=== PATIENT | male | born 1940 | race Caucasian/White ===

== ENCOUNTER 2018-01-14 13:27 | Outpatient (CLI) | payer MEDICARE, OTHER ==
[~2018-01-14] VITALS: Ht 175.3 cm; Wt 86.6 kg
[2018-01-14] MEDS ORDERED: PHEN100C4 PO (14:10)
[2018-01-14] MEDS ORDERED: PHEN97.2 PO (14:10)
[2018-01-15] MEDS ORDERED: ASPI-586 PO (09:47)
[2018-01-15] MEDS ORDERED: MULT-974 PO (09:47)
[2018-01-15] MEDS ORDERED: HYDR-3870 PO (12:14)
[2018-01-15] MEDS ORDERED: TAMS0.4C98 PO (12:14)
[2018-01-15] MEDS ORDERED: CIPR-225 PO (12:14)
== END 2018-01-14 14:15 | disposition home or self-care (01) ==
LOC: PREOP 13:27
PROVIDERS: ATTEND Urology
DX: Z01.818 Encounter for other preprocedural examination (principal)

== ENCOUNTER → 2018-01-14 | Outpatient (CLI) | payer MEDICARE, OTHER ==
[~2018-01-14] MED LIST: ASPI-586 PO; CIPR-225 PO; DEXAMETHASONE 10 MG/ML (DECADRON) 1 ML VIAL ONE; FUROSEMIDE 40 MG/4 ML INJ (LASIX) ONE; HYDR-3870 PO; KETOROLAC 30 MG/ML VIAL ONE; LIDOCAINE PF 2% 5 ML (XYLOCAINE) VIAL ONE; MIDAZOLAM 2 MG/2 ML (VERSED) VIAL ONE; MULT-974 PO; ONDANSETRON 4 MG/2 ML (SDV) Z0FRAN ONE; PHEN100C4 PO; PHEN97.2 PO; SEVOFLURANE (ULTANE) 15 ML INHAL SOLN ONE; TAMS0.4C98 PO; fentaNYL INJECTION 100 MCG/2 ML AMP ONE; proPOfol 200 MG/20 ML (DIPRIVAN) VIAL IV ONE
--- NOTE | 2018-01-14 12:58 | Diagnostic Imaging Report ---
INDICATION: Right-sided ureteral stone. TECHNIQUE: 2 supine view of the abdomen 12:19 PM. CORRELATION STUDY: None FINDINGS: Moderate amount of overlying bowel gas and stool limits assessment. There are multiple calcifications asymmetrically disproportionate in the right hemipelvis compared to the left. Large number of these appear to be vascular or phleboliths. Some of these are in expected location of the distal right ureter. Small punctate calcification over the right L3 transverse process for which ureteral stone is not excluded. Metallic density over the left aspect of the L5 vertebral body. There is asymmetric density over the right mid sacrum as well as left iliac bone, nonspecific. Suggest additional sclerotic foci over the right superior pubic symphysis. Asymmetric sclerosis at the left SI joint. Leftward curvature of the lumbar spine with compressed L2 vertebral body and to a lesser degree the superior L3 vertebral body. IMPRESSION: 1. Multiple calcification of the right hemipelvis as well as additional calcification adjacent to the right L3 vertebral body. Possibility of these being ureteral stones would be difficult to exclude. Correlation with renal colic CT if clinically warranted would be recommended. 2. Multifocal areas of sclerosis are present. These may very well be benign findings. However, given the patient's age, the possibility of metastatic disease such as prostate cancer would be difficult to exclude. Dictated by: Dictated on workstation # [id number]
== END ==
LOC: RAD 11:48
PROVIDERS: ATTEND Urology
DX: N20.1 Calculus of ureter (principal); M25.80 Other specified joint disorders, unspecified joint
CPT/HCPCS: 74018

== ENCOUNTER 2018-01-15 07:43 | Day surgery (SDC) | payer MEDICARE, OTHER ==
[~2018-01-15] VITALS: Ht 175.3 cm; Wt 86.6 kg
[~2018-01-15 07:43] MED LIST changes: -ASPI-586 PO; -CIPR-225 PO; -DEXAMETHASONE 10 MG/ML (DECADRON) 1 ML VIAL ONE; -FUROSEMIDE 40 MG/4 ML INJ (LASIX) ONE; -HYDR-3870 PO; -KETOROLAC 30 MG/ML VIAL ONE; -LIDOCAINE PF 2% 5 ML (XYLOCAINE) VIAL ONE; -MIDAZOLAM 2 MG/2 ML (VERSED) VIAL ONE; -MULT-974 PO; -ONDANSETRON 4 MG/2 ML (SDV) Z0FRAN ONE; -SEVOFLURANE (ULTANE) 15 ML INHAL SOLN ONE; -TAMS0.4C98 PO; -fentaNYL INJECTION 100 MCG/2 ML AMP ONE; -proPOfol 200 MG/20 ML (DIPRIVAN) VIAL IV ONE
[2018-01-15 07:50] VITALS: BP 118/89
--- OUTSIDE RECORDS SUMMARY | 2018-01-15 07:58 | XMS REPORT | Continuity of Care Document ---
Author Author [facility] Address Unknown Phone Unavailable Allergies Active Description Code Type Severity Reaction Onset Reported/Identified Relationship to Patient Clinical Status Yes NO NAME AVAILABLE [id number] DRUG N/ A N/A Yes NO KNOWN DRUG ALLERGIES UNKNOWN NO KNOWN DRUG ALLERG Medications Medication Packaging Start Date Stop Date Route Dosage Sig LACTATED RINGERS IV SOLN 2015 Intravenous 1000 CONTINUOUS CEFOXITIN SODIUM-DEXTROSE 1-4 GM-% IV SOLR 08/03/2015 Intravenous 1 ONCE LIDOCAINE HCL 1 % IJ SOLN 2015 PRN PROPOFOL 10 MG/ML IV EMUL 2015 Intravenous PRN ONDANSETRON HCL 4 MG/2ML IJ SOLN 08/03/2015 Intravenous PRN SODIUM CHLORIDE 0.9 % IRRIGATION SOLN (SUPPLY) 08/03/2015 PRN SODIUM CHLORIDE 0.9 % IRRIGATION SOLN (SUPPLY) 08/03/2015 PRN STERILE WATER FOR IRRIGATION SOLN (SUPPLY) 08/03/2015 PRN ONDANSETRON HCL 4 MG/2ML IJ SOLN 08/03/2015 Intravenous 4 ONCE PRN ONDANSETRON 4 MG PO TBDP 2015 Oral 4 ONCE PRN ONDANSETRON HCL 4 MG/2ML IJ SOLN 08/03/2015 Intravenous 4 EVERY 6 HOURS PRN PHENAZOPYRIDINE HCL 100 MG PO TABS 08/03/2015 Oral 200 EVERY 8 HOURS PRN LACTATED RINGERS IV SOLN 2015 Intravenous CONTINUOUS PHENYTOIN SODIUM EXTENDED 300 MG PO CAPS 08/03/2015 Oral 300 NIGHTLY TAMSULOSIN HCL 0.4 MG PO CAPS 12/2015 Oral 0.4 NIGHTLY FINASTERIDE 5 MG PO TABS 2015 Oral 5 DAILY LACTATED RINGERS IV SOLN 2015 Intravenous 1000 CONTINUOUS CEFOXITIN SODIUM-DEXTROSE 1-4 GM-% IV SOLR 09/02/2015 Intravenous 1 ONCE PROPOFOL 10 MG/ML IV EMUL 2015 Intravenous CONTINUOUS PRN PHENYLEPHRINE HCL-NACL PF 1-0.9 MG/10ML-% IV SOSY 09/02/2015 Intravenous PRN EPHEDRINE SULFATE 5 MG/ML PREFILLED SYRINGE 09/02/2015 Intravenous PRN SODIUM CHLORIDE 0.9 % IRRIGATION SOLN (SUPPLY) 09/02/2015 PRN IOHEXOL 300 MG/ML IJ SOLN 2015 PRN SURGILUBE EX GEL 09/02/2015 PRN STERILE WATER FOR IRRIGATION SOLN (SUPPLY) 09/02/2015 PRN ONDANSETRON HCL 4 MG/2ML IJ SOLN 09/02/2015 PRN ONDANSETRON HCL 4 MG/2ML IJ SOLN 09/02/2015 Intravenous 4 ONCE PRN ONDANSETRON 4 MG PO TBDP 2015 Oral 4 ONCE PRN ONDANSETRON HCL 4 MG/2ML IJ SOLN 09/02/2015 Intravenous 4 EVERY 6 HOURS PRN PHENAZOPYRIDINE HCL 100 MG PO TABS 09/02/2015 Oral 200 EVERY 8 HOURS PRN DEXTROSE-NACL 5-0.9 % IV SOLN 11/2015 Intravenous CONTINUOUS CEFOXITIN SODIUM-DEXTROSE 1-4 GM-% IV SOLR 09/02/2015 09/03/2015 Intravenous 1 EVERY 8 HOURS FINASTERIDE 5 MG PO TABS 2015 Oral 5 DAILY CIPROFLOXACIN HCL 500 MG PO TABS 09/02/2015 Oral 500 2 TIMES DAILY KETOROLAC VIAL INJ 60 MG/2CC (TORADOL VIAL) MG 03/24/2017 03/24/2017 ONCE&0902 ACETAMINOPHEN TAB 500 MG (TYLENOL) MG 01/06/2018 01/06/2018 ONCE&1417 NORMAL SALINE 500CC IV BAG INJ 0.9 % (NS 500CC IV BAG) ml 01/06/2018 01/06/2018 ONCE&1417 NORMAL SALINE 500CC IV BAG INJ 0.9 % (NS 500CC IV BAG) ml 01/06/2018 01/06/2018 ONCE&1600 NORMAL SALINE 1000CC IV BAG INJ 0.9 % (NS 1000CC IV BAG) ml 01/06/2018 01/21/2018 CONTINUOUSEVERY 0 Hour CEFTRIAXONE PREMIX IV BAG IV 1 GM/50CC (ROCEPHIN PREMIX IV BAG) GM 01/06/2018 01/06/2018 ONCE&1700 ACETAMINOPHEN ORAL TABLET 325mg(Tylenol) MG 01/06/2018 02/05/2018 PRN EVERY 6 Hour NORMAL SALINE 1000CC IV BAG INJ 0.9 % (NS 1000CC IV BAG) ml 01/06/2018 01/21/2018 CONTINUOUSEVERY 0 Hour IBUPROFEN TAB 600 MG (MOTRIN) MG 01/13/2018 PRN Q6H PHENOBARBITAL TAB 100 MG (sub 97.2mg) MG 01/06/2018 01/12/2018 QHS&2100 PHENYTOIN CAP 100 MG (DILANTIN) MG 01/06/2018 01/13/2018 Daily&0600,1400,2200 ASPIRIN ENTERIC COATED TAB 81 MG (BABY ASPIRIN EC) MG 01/07/2018 01/13/2018 Daily&0900 PHENOBARBITAL TAB 100 MG (sub 97.2mg) MG 01/07/2018 01/13/2018 Daily&0900 CEFTRIAXONE PREMIX IV BAG IV 1 GM/50CC (ROCEPHIN PREMIX IV BAG) GM 01/07/2018 01/13/2018 Daily&0900 KETOROLAC VIAL INJ 30 MG/CC (TORADOL VIAL) MG 01/07/2018 01/07/2018 ONCE&1334 NORMAL SALINE 1000CC IV BAG INJ 0.9 % (NS 1000CC IV BAG) ml 01/07/2018 01/22/2018 CONTINUOUSEVERY 0 Hour FENTANYL INJ 100 MCG/2CC VIAL MCG 01/07/2018 01/10/2018 PRN Q2H Meropenem-0.9% sodium chloride IV piggyback 1 Gm GM 01/07/2018 01/17/2018 Q12H&0600,1800 KETOROLAC VIAL INJ 30 MG/CC (TORADOL VIAL) MG 01/07/2018 01/10/2018 PRN Q6H Meropenem-0.9% sodium chloride IV piggyback 1 Gm GM 01/07/2018 01/17/2018 Q12H&0800,2000 PHENYTOIN CAP 100 MG (DILANTIN) MG 01/07/2018 01/13/2018 QPM&2100 ASPIRIN ENTERIC COATED TAB 81 MG (BABY ASPIRIN EC) MG 01/08/2018 01/14/2018 Daily&0900 LACTATED RINGERS 1000CC IV BAG INJ ml 01/08/2018 01/08/2018 ONCE&0908 NORMAL SALINE 1000CC IV BAG INJ 0.9 % (NS 1000CC IV BAG) ml 01/10/2018 01/25/2018 CONTINUOUSEVERY 0 Hour Docusate sodium 100mg oral capsule (COLACE) MG 01/10/2018 02/09/2018 BID&0800,2000 POLYETHYLENE GLYCOL POWDER UD PWD (MIRALAX 17GM UNIT DOSE PAKS) gm 01/11/2018 01/17/2018 Daily&0900 ENOXAPARIN SYRINGE INJ 40 MG (LOVENOX SYRINGE) MG 01/11/2018 01/20/2018 Daily&2000 Problems Date Dx Coded Attending Type Code Diagnosis Diagnosed By 07/11/2015 TYSHAWN BACON-LESLIE V N39.0 Urinary tract infection, site not specified BACON, VILLAGRAN-CHI 08/03/2015 BACON, VILLAGRAN-CHI P N21.0 Calculus in bladder BACON, VILLAGRAN-CHI 08/03/2015 BACON, VILLAGRAN-CHI P N21.0 Calculus in bladder BACON, VILLAGRAN-CHI 08/03/2015 BACON, VILLAGRAN-CHI P N21.0 Calculus in bladder BACON, VILLAGRAN-CHI 08/03/2015 BACON, VILLAGRAN-CHI P N21.0 Calculus in bladder BACON, VILLAGRAN-CHI 08/04/2015 BACON, VILLAGRAN-CHI P N21.0 Calculus in bladder BACON, VILLAGRAN-CHI 08/04/2015 BACON, VILLAGRAN-CHI P N21.0 Calculus in bladder BACON, VILLAGRAN-CHI 08/04/2015 BACON, VILLAGRAN-CHI P N21.0 Calculus in bladder BACON, VILLAGRAN-CHI 2015 BACON, VILLAGRAN-CHI V [id number] Urinary Retention [facility] 08/28/2015 CHETNA COPPOLA V 887338 Hematuria ANATCHETNA JENKINS 08/28/2015 CHETNA COPPOLA V 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 CHETNA COPPOLA 08/28/2015 CHETNA COPPOLA V R33.9 Retention of urine, unspecified CHETNA COPPOLA 03/24/2017 Alexander Koch 729.5 PAIN IN LIMB 03/24/2017 Alexander Kohc 841.9 SPRAIN OF UNSPECIFIED SITE OF ELBOW AND FOREARM 03/24/2017 Alexander Koch M79.632 PAIN IN LEFT FOREARM 03/24/2017 Alexander Koch S56.912A STRAIN OF UNSP MUSC/FASC/TEND AT FORARM LV, LEFT ARM, INIT 09/19/2017 Nida Powell W E888.8 OTHER FALL 09/19/2017 Andre, Nida W W00 FALL DUE TO ICE AND SNOW 09/19/2017 Andre, Nida W E888.8 OTHER FALL 09/19/2017 Andre, Nida W W00 FALL DUE TO ICE AND SNOW 09/19/2017 Andre, Nida W E888.8 OTHER FALL 09/19/2017 Andre, Nida W W00 FALL DUE TO ICE AND SNOW 01/06/2018 W 458.1 CHRONIC HYPOTENSION 01/06/2018 W 599.0 URINARY TRACT INFECTION, SITE NOT SPECIFIED 01/06/2018 W I95.89 OTHER HYPOTENSION 01/06/2018 W N39.0 URINARY TRACT INFECTION, SITE NOT SPECIFIED 01/13/2018 W 458.1 CHRONIC HYPOTENSION 01/13/2018 W 599.0 URINARY TRACT INFECTION, SITE NOT SPECIFIED 01/13/2018 W I95.89 OTHER HYPOTENSION 01/13/2018 W N39.0 URINARY TRACT INFECTION, SITE NOT SPECIFIED Procedures There is no data. Results Test Result Range URINE CULTURE - 07/11/15 13:18 CBC WITH AUTO DIFFERENTIAL - 08/03/15 13:30 BASOPHILS RELATIVE PERCENT 0.5 % 0.0-2.5 EOSINOPHILS RELATIVE PERCENT 6.2 % <=5.0 HEMATOCRIT 44.0 % 38.8-50.0 HEMOGLOBIN 14.5 g/dL 13.5-17.5 LYMPHOCYTES RELATIVE PERCENT 35.9 % 22.0-49.0 MEAN CORPUSCULAR HEMOGLOBIN 30.8 pg 26.0-34.0 MEAN CORPUSCULAR HEMOGLOBIN CONC 33.0 g/dL 31.0-37.0 MEAN CORPUSCULAR VOLUME 93.4 fL 81.2-95.1 MONOCYTES RELATIVE PERCENT 7.7 % 2.0-9.0 NEUTROPHILS RELATIVE PERCENT 49.7 % 40.0-75.0 PLATELET COUNT 241 10E9/L 150-450 RED BLOOD CELL COUNT 4.71 10E12/L 4.32-5.72 RED CELL DISTRIBUTION WIDTH 13.4 % 11.8-15.6 [id number] 5.8 10E9/L 3.5-10.5 0640316 2.10 10E9/L 0.90-2.90 3689046 0.40 10E9/L 0.30-0.90 1329838 0.40 10E9/L 0.05-0.50 [id number] 2.90 10E9/L 1.70-7.00 [id number] 0.00 10E9/L 0.00-0.30 COMPREHENSIVE METABOLIC PANEL - 08/03/15 13:30 ALBUMIN 4.2 g/dL 3.4-4.8 ALKALINE PHOSPHATASE 151 U/L 29-122 ALT 16 U/L 10-46 AST 25 U/L 16-37 BILIRUBIN,TOTAL 0.3 mg/dL 0.2-1.3 BUN BLOOD 20 mg/dL 6-20 CALCIUM 9.1 mg/dL 8.7-10.5 CHLORIDE 104 mmol/L 99-111 CO2 32 mmol/L 20-36 CREATININE 0.68 mg/dL 0.60-1.20 EGFR > mL/min >59 GLUCOSE 96 mg/dL 74-106 POTASSIUM 4.6 mmol/L 3.6-4.9 PROTEIN TOTAL 7.7 g/dL 6.4-8.3 SODIUM 139 mmol/L 136-145 BASIC METABOLIC PANEL - 08/28/15 04:00 BUN BLOOD 17 mg/dL 6-20 CALCIUM 8.5 mg/dL 8.7-10.5 CHLORIDE 105 mmol/L 99-111 CO2 31 mmol/L 20-36 CREATININE 0.70 mg/dL 0.60-1.20 EGFR > mL/min >59 GLUCOSE 100 mg/dL 74-106 POTASSIUM 4.1 mmol/L 3.6-4.9 SODIUM 141 mmol/L 136-145 URINE CULTURE - 08/28/15 04:10 Ampicillin 8 ug/mL Ceftriaxone 32 ug/mL Levofloxacin > ug/mL Penicillin 8 ug/mL Tetracycline > ug/mL Vancomycin 2 ug/mL Amp/Sulbactam(c). <=ug/mL Ciprofloxacin > ug/mL Gentamicin <=ug/mL Synercid <=ug/mL Moxifloxacin 4 ug/mL Amoxicillin+Clavulanate <=ug/mL Linezolid <=ug/mL Oxacillin > ug/mL Rifampin <=ug/mL Daptomycin <=ug/mL Nitrofurantoin <=ug/mL URINE CULTURE - 09/16/15 08:26 [id number] <10,000 CFU/mL URINE CULTURE - 01/26/16 10:57 Ceftriaxone <=ug/mL Levofloxacin > ug/mL Tetracycline <=ug/mL Vancomycin 0.5 ug/mL Amp/Sulbactam(c). <=ug/mL Ciprofloxacin > ug/mL Gentamicin <=ug/mL Trimethoprim+Sulfamethoxazole > ug/mL Synercid <=ug/mL Moxifloxacin > ug/mL Amoxicillin+Clavulanate <=ug/mL Linezolid <=ug/mL Oxacillin <=ug/mL Rifampin <=ug/mL Daptomycin <=ug/mL Nitrofurantoin <=ug/mL CBC WITH AUTO DIFFERENTIAL - 03/07/16 10:57 BASOPHILS RELATIVE PERCENT 0.5 % 0.0-2.5 EOSINOPHILS RELATIVE PERCENT 5.6 % <=5.0 HEMATOCRIT 41.6 % 38.8-50.0 HEMOGLOBIN 13.7 g/dL 13.5-17.5 LYMPHOCYTES RELATIVE PERCENT 35.3 % 22.0-49.0 MEAN CORPUSCULAR HEMOGLOBIN 30.6 pg 26.0-34.0 MEAN CORPUSCULAR HEMOGLOBIN CONC 33.0 g/dL 31.0-37.0 MEAN CORPUSCULAR VOLUME 92.9 fL 81.2-95.1 MONOCYTES RELATIVE PERCENT 10.6 % 2.0-9.0 NEUTROPHILS RELATIVE PERCENT 48.0 % 40.0-75.0 PLATELET COUNT 228 10E9/L 150-450 RED BLOOD CELL COUNT 4.48 10E12/L 4.32-5.72 RED CELL DISTRIBUTION WIDTH 13.7 % 11.8-15.6 [id number] 5.2 10E9/L 3.5-10.5 0064611 1.80 10E9/L 0.90-2.90 2772175 0.50 10E9/L 0.30-0.90 8075718 0.30 10E9/L 0.05-0.50 8309472 2.50 10E9/L 1.70-7.00 3340570 0.00 10E9/L 0.00-0.30 PSA - 03/07/16 10:57 PSA 0.50 ng/mL 0.00-4.00 URINE CULTURE - 03/08/16 08:20 [id number] No Growth SEDIMENTATION RATE, MANUAL - 06/19/16 13:42 [id number] 20 mm/Hr <=15 BASIC METABOLIC PANEL - 06/19/16 13:42 BUN BLOOD 11 mg/dL 6-20 CALCIUM 9.0 mg/dL 8.7-10.5 CHLORIDE 106 mmol/L 99-111 CO2 32 mmol/L 20-36 CREATININE 0.77 mg/dL 0.60-1.20 EGFR > mL/min >59 GLUCOSE 97 mg/dL 74-106 POTASSIUM 4.4 mmol/L 3.6-4.9 SODIUM 142 mmol/L 136-145 Phenobarbital - 01/02/17 08:38 Phenobarb 26.3 ug/mL 10.0-25.0 Uric Acid - 03/24/17 09:01 Uric Acid 5.2 mg/dL 2.6-7.2 Urine Culture - 09/09/17 17:05 PRELIM CULTURE RESULTS >100,000 Gram Negative - PERLA / ID to Follow MEDIA PLATED Setup at 17:28 on 09/09/2017 CULTURE SOURCE Urine Sensi - 09/09/17 17:05 FINAL CULTURE RESULTS Escherichia coli (Isolate 1) Ampicillin/Sulbactam <=8/4 Ampicillin <=8 Amoxicillin/K Clavulanate >16/8 Ceftriaxone <=8 Ciprofloxacin <=1 Nitrofurantoin <=32 Gentamicin <=4 Levofloxacin <=2 Trimethoprim/ Sulfamethoxazole <=2/38 Tetracycline <=4 Amikacin <=16 Aztreonam <=8 Ceftazidime <=1 Ceftazidime/K Clavulanate <=0.25 Cephalothin 16 Cefotaxime <=2 Cefotaxime/K Clavulanate <=0.5 Cefoxitin <=8 Cefazolin <=8 Cefepime <=8 Cefuroxime 8 Ertapenem <=1 Imipenem <=4 Meropenem <=4 Piperacillin/Tazobactam <=16 Piperacillin <=16 Tigecycline <=2 Tobramycin <=4 Urine Culture - 09/19/17 18:30 PRELIM CULTURE RESULTS >100,000 Gram Negative Lactose Black Belt PERLA / ID to Follow MEDIA PLATED Setup at 19:00 on 09/19/2017 CULTURE SOURCE VOID Sensi - 09/19/17 18:30 FINAL CULTURE RESULTS Escherichia coli (Isolate 1) Ampicillin/Sulbactam <=8/4 Ampicillin <=8 Amoxicillin/K Clavulanate <=8/4 Ceftriaxone <=8 Ciprofloxacin <=1 Nitrofurantoin <=32 Gentamicin <=4 Levofloxacin <=2 Trimethoprim/ Sulfamethoxazole <=2/38 Tetracycline <=4 Amikacin <=16 Aztreonam <=8 Ceftazidime <=1 Ceftazidime/K Clavulanate <=0.25 Cephalothin <=8 Cefotaxime <=2 Cefotaxime/K Clavulanate <=0.5 Cefoxitin <=8 Cefazolin <=8 Cefepime <=8 Cefuroxime <=4 Ertapenem <=1 Imipenem <=4 Meropenem <=4 Piperacillin/Tazobactam <=16 Piperacillin <=16 Tigecycline <=2 Tobramycin <=4 Phenobarbital - 12/19/17 09:22 Phenobarb 25.3 ug/mL 10.0-25.0 Dilantin - 12/19/17 09:22 Dilantin 10.3 ug/mL 10.0-20.0 Urinalysis - 01/06/18 13:58 Icotest N/A Negative Urine Volume Urine Volume Sufficient (10mL) Urine-Appearance Cloudy Clear Urine-Bacteria 4+ Urine-Bilirubin Negative Negative Urine-Blood 2+ Negative Urine-Color Yellow Colorless-Lt. Yellow Urine-Glucose Negative Negative Urine-Ketones Negative Negative Urine-Leukocytes 3+ Negative Urine-Nitrite Positive Negative Urine-Other Culture to follow Urine-pH 5.5 5-8.5 Urine-Protein 2+ Negative Urine-RBC 5-10/HPF Urine-Specific Ragan 1.015 1.000-1.030 Urine-WBC TNTC Urobilinogen 0.2 0.2-1.0 Urine Culture - 01/06/18 13:58 PRELIM CULTURE RESULTS >100,000 Gram Negative Lactose Black Belt PERLA / ID to Follow MEDIA PLATED Setup at 15:20 on 01/06/2018 CULTURE SOURCE clean catch reflex Sensi - 01/06/18 13:58 FINAL CULTURE RESULTS Escherichia coli (Isolate 1) Ampicillin/Sulbactam <=8/4 Ampicillin <=8 Amoxicillin/K Clavulanate <=8/4 Ceftriaxone <=8 Ciprofloxacin <=1 Nitrofurantoin <=32 Gentamicin <=4 Levofloxacin <=2 Trimethoprim/ Sulfamethoxazole <=2/38 Tetracycline <=4 Amikacin <=16 Aztreonam <=8 Ceftazidime <=1 Ceftazidime/K Clavulanate <=0.25 Cephalothin 16 Cefotaxime <=2 Cefotaxime/K Clavulanate <=0.5 Cefoxitin <=8 Cefazolin <=8 Cefepime <=8 Cefuroxime 8 Ertapenem <=1 Imipenem <=4 Meropenem <=4 Piperacillin/Tazobactam <=16 Piperacillin <=16 Tigecycline <=2 Tobramycin <=4 Dilantin - 01/06/18 16:59 Dilantin 7.3 ug/mL 10.0-20.0 [facility] - 01/07/18 05:49 Anion Gap 14 6-14 BUN 16 mg/dL 5-25 Calcium 7.5 mg/dL 8.3-10.4 Chloride 103 mmol/L 95-114 CO2 22 mEq/L 22-33 Creat 0.88 mg/dL 0.50-1.50 eGFR 84 mL/min/1.73m2 >59 Glucose 131 mg/dL 70-110 Osmo 282 280-295 Potassium 3.6 mmol/L 3.5-5.3 Sodium 135 mmol/L 134-148 [facility] - 01/08/18 06:59 Anion Gap 16 6-14 BUN 13 mg/dL 5-25 Calcium 7.7 mg/dL 8.3-10.4 Chloride 108 mmol/L 95-114 CO2 21 mEq/L 22-33 Creat 0.69 mg/dL 0.50-1.50 eGFR 111 mL/min/1.73m2 >59 Glucose 96 mg/dL 70-110 Osmo 291 280-295 Potassium 3.7 mmol/L 3.5-5.3 Sodium 141 mmol/L 134-148 Blood Culture - 01/09/18 00:25 PRELIM CULTURE RESULTS Blood Culture Negative, No Growth Day 1 FINAL CULTURE RESULTS Blood Culture Negative, No Growth Day 5 MEDIA PLATED Setup at 00:41 on 01/09/[id number] Culture Media Position C49 CULTURE SOURCE drawn @ Right Hand Blood Culture - 01/09/18 00:30 PRELIM CULTURE RESULTS Blood Culture Negative, No Growth Day 1 FINAL CULTURE RESULTS Blood Culture Negative, No Growth Day 5 MEDIA PLATED Setup at 00:42 on 01/09/[id number] Culture Media Position C43 CULTURE SOURCE drawn @ Left Arm BMP - 01/09/18 06:48 Anion Gap 17 6-14 BUN 8 mg/dL 5-25 Calcium 7.7 mg/dL 8.3-10.4 Chloride 109 mmol/L 95-114 CO2 20 mEq/L 22-33 Creat 0.71 mg/dL 0.50-1.50 eGFR 107 mL/min/1.73m2 >59 Glucose 98 mg/dL 70-110 Osmo 292 280-295 Potassium 4.1 mmol/L 3.5-5.3 Sodium 142 mmol/L 134-148 [facility] - 01/10/18 07:00 Anion Gap 15 6-14 BUN 10 mg/dL 5-25 Calcium 8.0 mg/dL 8.3-10.4 Chloride 110 mmol/L 95-114 CO2 22 mEq/L 22-33 Creat 0.71 mg/dL 0.50-1.50 eGFR 107 mL/min/1.73m2 >59 Glucose 94 mg/dL 70-110 Osmo 294 280-295 Potassium 4.2 mmol/L 3.5-5.3 Sodium 143 mmol/L 134-148 Dilantin - 01/12/18 07:00 Dilantin 7.2 ug/mL 10.0-20.0 Phenobarbital - 01/12/18 07:00 Phenobarb 19.0 ug/mL 10.0-25.0 Encounters ACCT No. Visit Date/Time Discharge Status Pt. Type Provider Facility Loc./Unit Complaint [id number] 10/23/2016 14:03:45 10/23/2016 23:59:59 CLS Outpatient [facility] UROL [id number] 06/25/2016 12:27:27 06/25/2016 23:59:59 CLS Outpatient [facility] UROL [id number] 06/19/2016 13:34:13 06/19/2016 23:59:59 CLS Outpatient [facility] [id number] 06/19/2016 13:33:01 06/19/2016 23:59:59 CLS Outpatient [facility] 901 [id number] 06/19/2016 12:43:02 06/19/2016 23:59:59 CLS Outpatient LIZA ROJAS [facility] 901 [id number] 03/19/2016 10:57:20 03/19/2016 23:59:59 CLS Outpatient [facility] 901 [id number] 03/16/2016 12:54:47 03/16/2016 23:59:59 CLS Outpatient [facility] 901 [id number] 03/13/2016 14:41:46 03/13/2016 23:59:59 CLS Outpatient [facility] 901 [id number] 03/13/2016 12:59:33 03/13/2016 23:59:59 CLS Outpatient PATRICE CHEN [facility] 901 [id number] 03/08/2016 08:16:53 03/08/2016 23:59:59 CLS Outpatient [facility] 901 [id number] 03/07/2016 10:26:52 03/07/2016 23:59:59 CLS Outpatient [facility] 901 [id number] 01/26/2016 10:39:32 01/26/2016 23:59:59 CLS Outpatient [facility] UROL [id number] 09/16/2015 08:03:21 09/16/2015 23:59:59 [facility] [id number] 09/06/2015 10:40:16 09/06/2015 23:59:59 CLS Outpatient ANUPAMA CASTLEJOSETTE Blue [facility] UROL [id number] 09/02/2015 12:00:54 09/03/2015 10:01:00 [facility] [id number] 08/28/2015 03:07:22 08/28/2015 05:36:00 DIS Emergency ANATCHETNA [facility] EMD [id number] 08/19/2015 09:25:31 08/19/2015 23:59:59 CLS Outpatient [facility] UROL [id number] 08/11/2015 13:34:17 08/11/2015 23:59:59 CLS Outpatient [facility] UROL [id number] 2015 10:46:36 2015 23:59:59 CLS Outpatient [facility]AC[facility] UROL [id number] 08/03/2015 12:16:17 08/04/2015 18:30:00 DIS Outpatient KATHRIN BACON [facility] 4W [id number] 07/11/2015 12:58:52 07/11/2015 23:59:59 CLS Outpatient KATHRIN BACON [facility] UROL [id number] 08/19/2015 13:37:22 Document Registration [id number] 08/03/2015 13:18:47 Document Registration [id number] 07/12/2015 09:08:23 Document Registration [id number] 09/19/2017 18:29:00 Document Registration [id number] 12/29/2017 07:55:25 ACT Document Registration [id number] 12/19/2017 09:16:00 12/19/2017 23:59:00 DIS Outpatient Nida Powell [id number] 09/19/2017 18:29:00 09/19/2017 23:59:00 DIS Outpatient Nida Powell [id number] 09/09/2017 17:04:00 09/09/2017 23:59:00 DIS Outpatient Nida Powell [id number] 03/24/2017 08:27:00 03/24/2017 10:35:00 DIS Outpatient [facility] [id number] 01/02/2017 08:34:00 01/02/2017 23:59:00 DIS Outpatient Nida Powell [id number] 01/06/2018 13:49:00 Document Registration [id number] 03/24/2017 09:03:41 Document Registration [id number] 12/25/2016 00:00:00 12/25/2016 23:59:[address] [facility] Neurology [facility] [id number] 11/12/2016 09:56:13 11/12/2016 23:59:[address] [facility] Neurology [facility] [id number] 11/06/2016 00:00:00 11/06/2016 23:59:[address] [facility] Neurology [place] [id number] 12/18/2017 00:00:00 12/18/2017 23:59:[address] [facility] Neurology [facility] [id number] 12/17/2017 00:00:00 12/17/2017 23:59:59 CLS Outpatient [facility] - Neurology [facility] [id number] 09/17/2017 00:00:00 09/17/2017 23:59:59 [facility] Outpatient [facility] - Neurology [facility]NE[facility] [id number] 06/18/2017 00:00:00 06/18/2017 23:59:59 [facility] Outpatient [facility] - Neurology [facility]NE[facility] [id number] 11/12/2016 09:56:13 Document Registration
[2018-01-15] MEDS: LACTATED RINGERS 1,000 ML IV PRN ×2 (08:00→10:40)
[2018-01-15] MEDS ORDERED: cefTRIAXone INJECTION 1,000 MG in NS (IVPB) 50 ML IV ONE (08:00)
--- NOTE | 2018-01-15 08:35 | Progress Note-Pre Operative ---
Pre-Operative Progress Note H&P Reviewed The H&P was reviewed, patient examined and no changes noted. Date Seen by Provider: Jan 15, 2018 Time Seen by Provider: 08:35 Date H&P Reviewed: Jan 15, 2018 Time H&P Reviewed: 08:35 Pre-Operative Diagnosis: RT DISTAL URETERAL STONE CAITLIN YANG MD Jan 15, 2018 8:35 am
--- NOTE | 2018-01-15 08:40 | Progress Note-Post Operative ---
Post-Operative Progess Note Surgeon (s)/Personal Secretary (s) Surgeon CAITLIN YANG MD Personal Secretary: N/A Pre-Operative Diagnosis RT DISTAL URETERAL STONE Post-Operative Diagnosis SAME Procedure & Operative Findings Date of Procedure 01/15/18 Procedure Performed/Findings RT ESWL Anesthesia Type GENERAL Estimated Blood Loss Estimated blood loss (mL): N/A Specimens/Packing Specimens Removed N/A Packing: N/A CAITLIN YANG MD Jan 15, 2018 8:40 am
--- NOTE | 2018-01-15 08:43 | Discharge Inst-Urology ---
Discharge Inst-Urology Discharge Medications New, Converted, or Re-newed RX: RX on Chart Patient Instructions/Follow Up Plan Please make appointment to been seen in office in 2 weeks. KUB prior to it KUB on way home Stay off ASA Post ESWL instructions Increase oral fluids for 48 hours and then as needed. Diet and Activity as tolerated. If questions or concerns contact your physician Or seek help at emergency department. CAITLIN YANG MD Jan 15, 2018 8:43 am
--- NOTE | 2018-01-15 08:50 | Diagnostic Imaging Report ---
Indication: Ureteral stone. Comparison: 01/14/2018 Findings: 2 AP supine views of the abdomen are obtained. There is a large amount of stool in the colon. The bowel gas pattern is otherwise unremarkable. The calcification previously seen adjacent to the right L3 vertebral bodies not readily apparent however this area is largely obscured by overlying bowel gas and stool. Multiple round calcifications in the right hemipelvis are unchanged and probably represent phleboliths although distal ureterolith would be difficult to entirely exclude. No new urinary tract stone is suspected. Multiple sclerotic lesions in the osseous structures are again demonstrated similar to the prior exam as previously described. There is mild levocurvature and more moderate degenerative changes in the mid lumbar spine. Impression: 1. Multiple round calcifications in the right hemipelvis are unchanged from the prior study and likely represent phleboliths although distal ureterolith would be difficult to entirely exclude. The tiny calcification seen adjacent the right L3 vertebral body in the previous study is not readily apparent today however this area is largely obscured by overlying bowel gas and stool. 2. Persistent sclerotic lesions in the osseous structures as described above. These may represent numerous benign bone islands however metastatic disease would be difficult to entirely exclude. Correlate clinically. Dictated by: Dictated on workstation # [id number]
[2018-01-15] MEDS ORDERED: MULT-974 PO (09:47)
[2018-01-15] MEDS ORDERED: ASPI-586 PO (09:47)
[2018-01-15] MEDS ORDERED: HYDROmorphone 1 MG/ML (DILAUDID) 1 ML SYRINGE IV PRN (11:00)
[2018-01-15] MEDS ORDERED: ONDANSETRON 4 MG/2 ML (SDV) Z0FRAN IVP PRN (11:00)
[2018-01-15 11:50] VITALS: BP 131/88
[2018-01-15] MEDS ORDERED: CIPR-225 PO (12:14)
[2018-01-15] MEDS ORDERED: HYDR-3870 PO (12:14)
[2018-01-15] MEDS ORDERED: TAMS0.4C98 PO (12:14)
[2018-01-15 12:20] VITALS: BP 130/83
[2018-01-15 12:50] VITALS: BP 134/86
[2018-01-15 13:11] VITALS: BP 134/86
--- NOTE | 2018-01-15 18:54 | Diagnostic Imaging Report ---
INDICATION: Nephrolithiasis. EXAMINATION: KUB at 12:40 p.m. FINDINGS: There is a large amount of stool in the GI tract obscuring some of the finer detail. There is questionable calculus projecting over the upper pole of the left kidney. There are several phleboliths in the right side of the pelvis. IMPRESSION: Questionable left nephrolithiasis. Dictated by: Dictated on workstation # [id number]
--- NOTE | 2018-01-15 19:32 | OPERATIVE REPORT ---
DATE OF SERVICE: 01/15/2018 PREOPERATIVE DIAGNOSIS: Right distal ureteral stone. POSTOPERATIVE DIAGNOSIS: Right distal ureteral stone. OPERATION PERFORMED: Right ESWL. SURGEON: Carroll aYng MD ANESTHESIA: General. COMPLICATIONS: None. DESCRIPTION OF PROCEDURE: Under satisfactory general anesthesia, the patient in supine position on the ESWL table, the right distal ureteral stone was localized. Shocks were delivered at kV of 6. A total of 3000 shocks seemed to have fragmented the stone. The patient received 40 mg of Lasix and 30 mg of Toradol IV at the end of the procedure. He tolerated the procedure and anesthesia well and was sent to recovery room in stable condition. Job ID: [id number] DocumentID: [id number] Dictated Date: 01/15/2018 10:47:45 Data Storage Specialist Date: 01/15/2018 19:31:42 Dictated By: CARROLL YANG MD
== END 2018-01-15 13:11 | disposition home or self-care (01) ==
LOC: SDC 07:43
PROVIDERS: ATTEND Urology
DX: N20.1 Calculus of ureter (principal); R56.9 Unspecified convulsions; Z79.899 Other long term (current) drug therapy
CPT/HCPCS: 74018; 87081

== ENCOUNTER → 2018-01-28 | Outpatient (CLI) | payer MEDICARE, OTHER ==
[~2018-01-28] MED LIST changes: +ASPI-586 PO; +CIPR-225 PO; +HYDR-3870 PO; +MULT-974 PO; +TAMS0.4C98 PO
--- NOTE | 2018-01-28 15:55 | Diagnostic Imaging Report ---
EXAMINATION: Abdomen at 2:58 p.m. INDICATION: Post ESWL. FINDINGS: The prior abdomen exam of 01/15/2018 raised the question of nephrolithiasis on the left. On this study, there is no clear evidence for a calculus overlying the left kidney, although the inferior pole of the left kidney is obscured by bowel gas and fecal material. The right kidney is difficult to assess as it is also obscured by bowel gas and fecal material. Reportedly, the patient has undergone ESWL today. There are a few smooth calcific densities along the pelvis on the right. These were present on the prior study and have not changed significantly. No other calcification is identified. The previous exam had noted calcific densities scattered throughout the pelvis. These are again evident and no different. These are most likely benign. However, there is also a 1.3 cm nodular density overlying the right lung base. I am not certain if this is related to the rib in this area, to the liver, or to the right lung base. This could represent a neoplastic mass involving the right lung base. A followup PA and lateral chest would be recommended for further study. IMPRESSION: 1. There is no clear evidence for nephrolithiasis involving either kidney, although both kidneys are partially obscured by bowel gas and fecal material. 2. The nodular density overlying the right lung base is of uncertain etiology. Recommendations as above. Dictated by: Dictated on workstation # [id number]
== END ==
LOC: RAD 13:38
PROVIDERS: ATTEND Urology
DX: R91.8 Other nonspecific abnormal finding of lung field (principal); N20.1 Calculus of ureter; Z98.890 Other specified postprocedural states
CPT/HCPCS: 74018